=== PATIENT | male | born 1950 | race Caucasian/White ===

== ENCOUNTER 2016-05-06 14:18 | Inpatient (IN) | payer MEDICARE, OTHER ==
[~2016-05-06] VITALS: Ht 185.4 cm; Wt 99.3 kg
[2016-06-15] VITALS (12 sets, daily range): BP systolic 93–1140; BP diastolic 50–77; PULSE 89–108; TEMP 97.6–98.7
[2016-06-15] MEDS ORDERED: FORT1000TA PO (06:26)
[2016-06-15] MEDS ORDERED: PRINIVIL20 MG PO (06:27)
[2016-06-16 02:23] VITALS: BP 89/47; PULSE 91; TEMP 99.1
[2016-06-16 06:12] VITALS: BP 101/51; PULSE 79; TEMP 98.2
[2016-06-16 06:49] LABS: BASO % 0.3 % (0.0-2.0); EOS % 0.1 % (0-4.0); GRAN # 8.1 (1.4-6.5); GRAN % 70.9 % (42.2-75.2); LYMPH # 2.1 (1.2-3.4); LYMPH % 18.4 % (20.0-51.0); MEAN CELL VOLUME 89 fl (80.0-100.0); MEAN CORPUSCULAR HGB CONC 34 g/dl (33.0-37.0); MEAN PLATELET VOLUME 10.3 fl (7.4-10.4); MONO # 1.2 (0.1-0.6); PLATELET COUNT 252 K/mm3 (130-400); RED BLOOD COUNT 3.46 M/mm3 (4.20-5.60); REDCELL DISTRIBUTION WIDTH-CV 13.7 % (11.5-14.5); WHITE BLOOD COUNT 11.5 K/mm3 (4.8-10.8)
[2016-06-16 06:52] LABS: HEMATOCRIT 30.9 % (42.0-52.0); HEMOGLOBIN 10.4 g/dl (13.5-18.0); MEAN CORPUSCULAR HEMOGLOBIN 30 pg (27.0-31.0)
[2016-06-16 07:10] LABS: CREATININE, serum 2.68 mg/dL (0.66-1.25); POTASSIUM 4.2 mmol/L (3.4-5.0)
[2016-06-16 09:56] VITALS: BP 106/54; PULSE 68; TEMP 98.2
[2016-06-16 13:12] VITALS: BP 113/54; PULSE 82; TEMP 98.2
[2016-06-16 18:01] VITALS: BP 135/63; PULSE 89; TEMP 99.7
[2016-06-16 21:24] VITALS: BP 126/54; PULSE 72; TEMP 98.5
[2016-06-17 02:15] VITALS: BP 136/62; PULSE 79; TEMP 98.2
[2016-06-17 05:12] VITALS: BP 135/82; PULSE 83; TEMP 98.5
[2016-06-17 07:43] LABS: MEAN CELL VOLUME 91 fl (80.0-100.0); MEAN CORPUSCULAR HGB CONC 33 g/dl (33.0-37.0); MEAN PLATELET VOLUME 10.3 fl (7.4-10.4); PLATELET COUNT 192 K/mm3 (130-400); RED BLOOD COUNT 3.33 M/mm3 (4.20-5.60); REDCELL DISTRIBUTION WIDTH-CV 13.8 % (11.5-14.5); WHITE BLOOD COUNT 9.9 K/mm3 (4.8-10.8)
[2016-06-17 07:56] LABS: CALCIUM 8.1 mg/dL (8.4-10.2); CREATININE, serum 1.37 mg/dL (0.66-1.25); POTASSIUM 4.2 mmol/L (3.4-5.0)
[2016-06-17 08:11] LABS: HEMATOCRIT 30.4 % (42.0-52.0); HEMOGLOBIN 10.1 g/dl (13.5-18.0); MEAN CORPUSCULAR HEMOGLOBIN 30 pg (27.0-31.0)
[2016-06-17 10:07] VITALS: BP 138/70; PULSE 99; TEMP 97.8
[2016-06-17 13:39] VITALS: BP 148/90; PULSE 102; TEMP 98.4
[2016-06-17 17:46] VITALS: BP 126/70; PULSE 100; TEMP 99.9
[2016-06-17 22:01] VITALS: BP 156/81; PULSE 93; TEMP 98.5
[2016-06-18 05:38] VITALS: BP 163/74; PULSE 81; TEMP 97.5
[2016-06-18 10:05] VITALS: BP 161/76; PULSE 96; TEMP 98.2
[2016-06-18 13:14] VITALS: BP 160/80; PULSE 79; TEMP 97.7
[2016-06-18 17:26] VITALS: BP 176/66; PULSE 80; TEMP 98.8
[2016-06-18 21:49] VITALS: BP 165/85; PULSE 84; TEMP 98.2
[2016-06-19 04:34] VITALS: BP 163/90; PULSE 83; TEMP 98.9
[2016-06-19 10:37] VITALS: BP 141/68; PULSE 78; TEMP 98.1
[2016-06-19 13:24] VITALS: BP 145/63; PULSE 89; TEMP 97.8
[2016-06-19 17:28] VITALS: BP 149/74; PULSE 91; TEMP 98.2
[2016-06-19 17:34] VITALS: BP 129/46; PULSE 55; TEMP 97.9
[2016-06-19 20:38] VITALS: BP 162/70; PULSE 85; TEMP 98.2
[2016-06-20 05:40] VITALS: BP 145/71; PULSE 78; TEMP 98.1
[2016-06-20 08:15] LABS: CREATININE, serum 0.93 mg/dL (0.66-1.25)
[2016-06-20 09:35] VITALS: BP 163/66; PULSE 37; PULSE 90; TEMP 98.5
[2016-06-20 13:28] VITALS: BP 146/79; PULSE 75; TEMP 98.6
== END 2016-06-20 18:00 | disposition home or self-care (01) | DRG 707 ==
LOC: INPTSU 06-15 05:28 → SURG 06-15 07:30
PROVIDERS: Urology
PROC: 07BC4ZX Excision of Pelvis Lymphatic, Percutaneous Endoscopic Approach, Diagnostic (ICD-10-PCS; 2016-06-15)
PROC: 8E0W4CZ Robotic Assisted Procedure of Trunk Region, Percutaneous Endoscopic Approach (ICD-10-PCS; 2016-06-15)
PROC: 0VT04ZZ Resection of Prostate, Percutaneous Endoscopic Approach (ICD-10-PCS; principal; 2016-06-15 07:30)
DX: C61 Malignant neoplasm of prostate (principal); N17.9 Acute kidney failure, unspecified; K91.3 Postprocedural intestinal obstruction; K91.871 Postprocedural hematoma of a digestive system organ or structure following other procedure; E11.9 Type 2 diabetes mellitus without complications; I10 Essential (primary) hypertension; Z87.891 Personal history of nicotine dependence; D50.0 Iron deficiency anemia secondary to blood loss (chronic)
CPT/HCPCS: A9284; C1713; E0710; J0360; J0690; J1100; J1170; J1650; J1815; J1885; J2370; J2405; J2704; J2710; J3010; J7030; J7050; Q9967

== ENCOUNTER 2016-07-02 12:21 | Inpatient (IN) | payer MEDICARE, OTHER ==
[~2016-07-02] VITALS: Ht 185.4 cm; Wt 90.9 kg
[~2016-07-02 12:21] MED LIST: FORT1000TA PO; PRINIVIL20 MG PO
[2016-07-02] MEDS ORDERED: REGLAN 5MG T5 MG/TAB PO (12:36)
[2016-07-02] MEDS ORDERED: ZOFRAN 4MG T4 MG/TAB PO (12:36)
[2016-07-02 12:44] VITALS: BP 127/71; PULSE 66; TEMP 97.6
[2016-07-02 13:37] LABS: BASO % 0.5 % (0.0-2.0); EOS # 0.1 (0.0-0.7); EOS % 1.7 % (0-4.0); GRAN # 5.2 (1.4-6.5); GRAN % 68.3 % (42.2-75.2); LYMPH # 1.5 (1.2-3.4); LYMPH % 19.9 % (20.0-51.0); MEAN CELL VOLUME 86 fl (80.0-100.0); MEAN CORPUSCULAR HEMOGLOBIN 30 pg (27.0-31.0); MEAN CORPUSCULAR HGB CONC 35 g/dl (33.0-37.0); MONO # 0.7 (0.1-0.6); MONO % 9.2 % (1.7-9.3); PLATELET COUNT 402 K/mm3 (130-400); RED BLOOD COUNT 4.01 M/mm3 (4.20-5.60); REDCELL DISTRIBUTION WIDTH-CV 13.7 % (11.5-14.5); WHITE BLOOD COUNT 7.5 K/mm3 (4.8-10.8)
[2016-07-02 13:38] LABS: HEMATOCRIT 34.6 % (42.0-52.0)
[2016-07-02 13:45] LABS: ADJUSTED CALCIUM 9.8 mg/dL (8.4-10.2); ALBUMIN 3.8 gm/dL (3.5-5.0); BILIRUBIN,TOTAL 1.8 mg/dL (0.0-1.0); CALCIUM 9.6 mg/dL (8.4-10.2); CREATININE, serum 1.33 mg/dL (0.66-1.25); TOTAL PROTEIN 7.3 gm/dL (6.4-8.2)
[2016-07-02 13:51] VITALS: BP 127/71; PULSE 66; TEMP 97.6
[2016-07-02 14:06] LABS: PH 5 (5-8); SQUAMOUS EPITHELIAL None Seen /hpf; URINE APPEARANCE Hazy; URINE BACTERIA None Seen /hpf; URINE BILIRUBIN Negative (NEGATIVE); URINE BLOOD 2+ (NEGATIVE); URINE COLOR Amber; URINE GLUCOSE Negative (NEGATIVE); URINE KETONE 1+ (NEGATIVE); URINE RBC >50 /hpf; URINE UROBILINOGEN >=4.0 mg/dL (NEGATIVE)
[2016-07-02 14:26] LABS: THYROID STIMULATING HORMONE 1.34 uIU/mL (0.465-4.680)
[2016-07-02 14:56] LABS: MAGNESIUM 1.4 mg/dL (1.6-2.3)
[2016-07-02 17:31] VITALS: BP 132/72; PULSE 65; TEMP 98
[2016-07-02 21:29] VITALS: BP 129/65; PULSE 81; TEMP 98.2
[2016-07-03 00:25] VITALS: BP 126/68; PULSE 75; TEMP 98
[2016-07-03 04:22] VITALS: BP 104/66; PULSE 76; TEMP 97.9
[2016-07-03 09:06] LABS: BASO # 0.1 (0.0-0.2); BASO % 0.7 % (0.0-2.0); EOS # 0.2 (0.0-0.7); EOS % 2.7 % (0-4.0); GRAN # 4.4 (1.4-6.5); GRAN % 60.5 % (42.2-75.2); LYMPH # 2.1 (1.2-3.4); LYMPH % 28.3 % (20.0-51.0); MEAN CELL VOLUME 89 fl (80.0-100.0); MEAN CORPUSCULAR HGB CONC 34 g/dl (33.0-37.0); MONO # 0.5 (0.1-0.6); MONO % 7.4 % (1.7-9.3); PLATELET COUNT 389 K/mm3 (130-400); RED BLOOD COUNT 3.85 M/mm3 (4.20-5.60); WHITE BLOOD COUNT 7.3 K/mm3 (4.8-10.8)
[2016-07-03 09:10] LABS: HEMATOCRIT 34.1 % (42.0-52.0); HEMOGLOBIN 11.5 g/dl (13.5-18.0); MEAN CORPUSCULAR HEMOGLOBIN 30 pg (27.0-31.0)
[2016-07-03 09:20] LABS: ALBUMIN 3.4 gm/dL (3.5-5.0); BILIRUBIN,TOTAL 1.2 mg/dL (0.0-1.0); CALCIUM 8.5 mg/dL (8.4-10.2); CREATININE, serum 1.13 mg/dL (0.66-1.25); MAGNESIUM 1.9 mg/dL (1.6-2.3); POTASSIUM 3.6 mmol/L (3.4-5.0); TOTAL PROTEIN 6.7 gm/dL (6.4-8.2)
[2016-07-03 09:57] VITALS: BP 152/68; PULSE 63; TEMP 97.9
[2016-07-03 14:08] VITALS: BP 146/71; PULSE 58; TEMP 98.5
[2016-07-03 17:46] VITALS: BP 176/67; PULSE 61; TEMP 98.5
[2016-07-03 21:33] VITALS: BP 153/74; PULSE 63; TEMP 98.5
[2016-07-04 00:08] VITALS: BP 130/77; PULSE 66; TEMP 98.3
[2016-07-04 05:47] VITALS: BP 164/79; PULSE 65; TEMP 98
[2016-07-04 07:56] LABS: BASO % 0.8 % (0.0-2.0); EOS # 0.2 (0.0-0.7); EOS % 4.8 % (0-4.0); GRAN # 2.9 (1.4-6.5); GRAN % 58.4 % (42.2-75.2); LYMPH # 1.3 (1.2-3.4); LYMPH % 26.8 % (20.0-51.0); MEAN CELL VOLUME 87 fl (80.0-100.0); MEAN CORPUSCULAR HGB CONC 34 g/dl (33.0-37.0); MEAN PLATELET VOLUME 9.8 fl (7.4-10.4); MONO # 0.5 (0.1-0.6); PLATELET COUNT 293 K/mm3 (130-400); REDCELL DISTRIBUTION WIDTH-CV 13.3 % (11.5-14.5)
[2016-07-04 07:58] LABS: HEMATOCRIT 30.6 % (42.0-52.0); HEMOGLOBIN 10.4 g/dl (13.5-18.0); MEAN CORPUSCULAR HEMOGLOBIN 30 pg (27.0-31.0)
[2016-07-04 08:14] LABS: CALCIUM 8.1 mg/dL (8.4-10.2); CREATININE, serum 0.94 mg/dL (0.66-1.25); POTASSIUM 3.5 mmol/L (3.4-5.0)
[2016-07-04 10:07] VITALS: BP 159/69; PULSE 64; TEMP 98
[2016-07-04 14:05] VITALS: BP 122/56; PULSE 71; TEMP 98
[2016-07-04 17:09] VITALS: BP 154/77; PULSE 63; TEMP 98.6
[2016-07-04 21:56] VITALS: BP 144/71; PULSE 75; TEMP 98.7
[2016-07-05 05:46] VITALS: BP 142/77; PULSE 72; TEMP 98.3
[2016-07-05 09:40] VITALS: BP 134/72; PULSE 73; TEMP 98.4
[2016-07-05] MEDS ORDERED: PROTONIX 40MG T40 MG PO (09:52)
== END 2016-07-05 11:00 | disposition home or self-care (01) | DRG 388 ==
LOC: SURG 12:21
PROVIDERS: Internal Medicine; Nurse Practitioner Family
DX: K56.7 Ileus, unspecified (principal); E43 Unspecified severe protein-calorie malnutrition; D62 Acute posthemorrhagic anemia; N39.0 Urinary tract infection, site not specified; N17.9 Acute kidney failure, unspecified; E11.9 Type 2 diabetes mellitus without complications; I10 Essential (primary) hypertension; E83.42 Hypomagnesemia; R62.7 Adult failure to thrive; E86.0 Dehydration; F17.220 Nicotine dependence, chewing tobacco, uncomplicated; Z85.46 Personal history of malignant neoplasm of prostate; Z87.891 Personal history of nicotine dependence; Z68.26 Body mass index [BMI] 26.0-26.9, adult
CPT/HCPCS: 99223-AI; 99232-AI; 99239; C9113; J0696; J1644; J2765; J3475; J7030